=== PATIENT | female | born 1935 | race Caucasian/White ===

== ENCOUNTER 2017-06-15 16:28 | Emergency (ER) | payer BC, MEDICARE ==
[2017-06-15 19:49] LABS: BASOPHILS 0.5 % (0-2); EOSINOPHILS 0.2 % (0-7); HEMATOCRIT 31.9 % (36.0-48.0); IMMATURE GRANULOCYTES 0.2 % (0-5); LYMPHOCYTES 21.4 % (15-50); MCHC 28.2 g/dL (31.0-37.0); MCV 69.3 fL (80.0-100.0); NEUTROPHILS 69.7 % (40-80); PLATELET COUNT 390 10x3/uL (130-400); RDW 20.8 % (11.5-14.5); WBC 6.1 10x3/uL (4.8-10.8)
[2017-06-15 19:52] LABS: ALBUMIN 3.7 g/dL (3.4-5.0); ALKALINE PHOSPHATASE 62 U/L (46-116); ALT (SGPT) 12 U/L (10-68); BILIRUBIN - TOTAL 0.51 mg/dL (0.2-1.3); CALC OSMOLALITY 281 mosm/kg (275-300); CALCIUM 8.8 mg/dL (8.5-10.1); CARBON DIOXIDE 26.6 mmol/L (21.0-32.0); CHLORIDE - SERUM 105 mmol/L (98-107); CREATININE - SERUM 0.7 mg/dL (0.6-1.3); GLUCOSE 75 mg/dL (74-106); POTASSIUM - SERUM 4.2 mmol/L (3.5-5.1); PROTEIN - SERUM 6.6 g/dL (6.4-8.2); SODIUM 141 mmol/L (136-145); UREA NITROGEN 19 mg/dL (7-18); eGFR NON AFRICAN AMERICAN 85 mL/min (90-120)
[2017-06-15 19:52] LABS: MCH 19.6 pg (26.0-34.0)
[2017-06-15 19:56] LABS: CREATINE KINASE 61 UL (21-215)
[2017-06-15 20:43] LABS: TROPONIN-I < 0.017 ng/mL (0.000-0.060)
[2017-06-15 21:02] LABS: CKMB 0.6 U/L (0.0-3.6); THYROID STIMULATING HORMONE 1.05 uIU/mL (0.36-3.74)
[2017-06-15 21:42] LABS: APPEARANCE CLEAR (CLEAR); BILIRUBIN NEGATIVE (NEGATIVE); COLOR YELLOW (YELLOW); GLUCOSE NEGATIVE (NEGATIVE); KETONE LARGE mg/dL (NEGATIVE); NITRITE NEGATIVE (NEGATIVE); PROTEIN NEGATIVE (NEGATIVE); RED CELLS - URINE 0-5 /hpf (0-5); SPECIFIC GRAVITY 1.025 (1.005-1.020); UROBILINOGEN NORMAL (NORMAL); WHITE CELLS - URINE 0-5 /hpf (0-5)
== END 2017-06-15 22:00 | disposition home or self-care (01) ==
LOC: D.ER 16:28
PROVIDERS: Physician Assistant Medical
DX: E86.0 Dehydration (principal); D64.9 Anemia, unspecified; R00.1 Bradycardia, unspecified

== ENCOUNTER 2017-07-27 13:55 | Emergency (ER) | payer MEDICARE, BC ==
[2017-07-27 14:32] LABS: BASOPHILS 0.4 % (0-2); EOSINOPHILS 0.2 % (0-7); HEMATOCRIT 36.7 % (36.0-48.0); IMMATURE GRANULOCYTES 0.2 % (0-5); MCH 24.1 pg (26.0-34.0); MCV 80.3 fL (80.0-100.0); MEAN PLATELET VOLUME 9.6 fL (7.4-10.4); MONOCYTES 8.5 % (2-11); NEUTROPHILS 67.7 % (40-80); PLATELET COUNT 290 10x3/uL (130-400); RBC 4.57 10x6/uL (4.00-5.40); RDW 27.5 % (11.5-14.5); WBC 5.6 10x3/uL (4.8-10.8)
[2017-07-27 14:46] LABS: ALBUMIN 3.6 g/dL (3.4-5.0); ANION GAP 11.1 mmol/L (8-16); BILIRUBIN - TOTAL 0.35 mg/dL (0.2-1.3); CALCIUM 8.8 mg/dL (8.5-10.1); CARBON DIOXIDE 29.3 mmol/L (21.0-32.0); CREATININE - SERUM 0.8 mg/dL (0.6-1.3); POTASSIUM - SERUM 3.4 mmol/L (3.5-5.1)
[2017-07-27 18:22] LABS: APPEARANCE CLEAR (CLEAR); BILIRUBIN NEGATIVE (NEGATIVE); COLOR YELLOW (YELLOW); GLUCOSE NEGATIVE (NEGATIVE); KETONE NEGATIVE (NEGATIVE); NITRITE NEGATIVE (NEGATIVE); PROTEIN NEGATIVE (NEGATIVE); UROBILINOGEN NORMAL (NORMAL)
== END 2017-07-27 19:11 | disposition home or self-care (01) ==
LOC: D.ER 13:55
PROVIDERS: Emergency Medicine
DX: H81.10 Benign paroxysmal vertigo, unspecified ear (principal); R00.1 Bradycardia, unspecified